=== PATIENT | male | born 1965 ===

== ENCOUNTER 2022-12-02 13:45 | Outpatient (CLI) | payer SELFPAY ==
--- NOTE | ~2022-12-02 | XR_ITS ---
EXAMINATION: [id number] DATE: 12/02/2022 14:17 INDICATION: Strain of muscle and tendon of back wall of thorax, initial encounter. TECHNIQUE: 3 views of cervical spine were obtained. COMPARISON: None. FINDINGS: There is 10 degrees levoscoliosis of cervicothoracic spine. There is 2 mm anterolisthesis o f C5 on C6. Vertebral body heights are normal. There is mildly decreased disc height at C5-C6 and mod erately decreased disc height at C6-C7. There is multilevel uncovertebral joint osteoarthritis, sever e bilaterally at C6-C7. There is multilevel facet joint osteoarthritis, severe on the left at C5-C6. There is mild central canal stenosis at C5-C6 and C6-C7. No prevertebral soft tissue swelling. IMPRESSION: 1. Moderate cervical spondylosis. 2. Cervicothoracic levoscoliosis. Reviewed, dictated and finalized at location A. GEMENT INTERN
--- NOTE | ~2022-12-02 | XR_ITS ---
EXAMINATION: XR thoracic spine 2V DATE: 12/02/2022 14:17 INDICATION: Upper back pain TECHNIQUE: AP, lateral and lateral swimmer's views of the thoracic spine were obtained. COMPARISON: None. FINDINGS: There is thoracolumbar levoscoliosis. Bone alignment is normal. There is no fracture. The v ertebral body heights are maintained. There is mild to moderate loss of intervertebral disc space hei ght at multiple levels in the thoracic spine. Small degenerative osteophytes project from the anterio r endplates of multiple vertebral bodies. IMPRESSION: 1. Moderate thoracic spondylosis without acute findings. Reviewed, dictated and finalized at location L. PATIONAL THERAPY TECHNICIAN
--- NOTE | ~2022-12-02 | XR_ITS ---
EXAMINATION: XR shoulder RT min 2V DATE: 12/02/2022 14:18 INDICATION: Strain of muscle and tendon of back wall of thorax, initial encounter. TECHNIQUE: 5 views of right shoulder were obtained. COMPARISON: None. FINDINGS: Bone alignment is normal. No fracture. There is mild osteoarthritis of glenohumeral joint a nd severe osteoarthritis of acromioclavicular joint. IMPRESSION: 1. Polyarticular osteoarthritis. Reviewed, dictated and finalized at location A. ITIONALIST
== END 2022-12-02 13:46 ==
PROVIDERS: PCP Internal Medicine; Visit Provider Internal Medicine
DX: S29.012A Strain of muscle and tendon of back wall of thorax, initial encounter (principal); X58.XXXA Exposure to other specified factors, initial encounter; M47.894 Other spondylosis, thoracic region; M47.892 Other spondylosis, cervical region; M19.011 Primary osteoarthritis, right shoulder
CPT/HCPCS: 72040; 72070; 73030